=== PATIENT | female | born 1945 | race Caucasian/White ===

== ENCOUNTER → 2016-06-16 | Outpatient (CLI) | payer MEDICARE, MEDICAID ==
[~2016-06-16] MED LIST: ACTOS30 MG PO; ALLEGRA 180MG180 MG PO; AMARYL PO; AMBIEN 10MG10 MG PO; AQUAPHOR1 OIN; ASPIRIN 81M81 MG/TA2 PO; ASPIRIN E.C. 8181 MG PO; ATIVAN 0.50.5 MG/TAB PO; BACTROBAN2% TP; BENADRYL25 M1 PO; BENADRYL25 M2; BIOTENE DRY M1000 ML; CEFTIN500 MG PO; CEPHALEXIN250 M1 PO; CIPRO 500MG TA500 MG PO; CIPRO500 MG PO; COLACE 100100 MG/CAP PO; DAZIDOX10 MG PO; DETROL LA4 PO; DIFLUCAN 100MG100 MG PO; DIFLUCAN100 MG PO; DIFLUCAN150 MG PO; DILANTIN 100MG100 MG PO; DILANTIN 50MG C50 MG PO; DITROPAN XL15 MG PO; EFFEXOR 75M75 MG/TAB PO; EFFEXOR XR75 MG/CAP PO; EFFEXOR-XR150 MG PO; FLONASE NASAL S16 GM; FLONASE NASAL S16 GM NS; GABAPENTIN100 M1 PO; GLUCOPHAGE500 MG/TAB PO; GLUCOPHAGE850 MG/TAB PO; GLUCOTROL 5M5 MG/TAB PO; GLUCOTROL5 MG PO; IMDUR 30MG30 MG/TAB PO; IMIPRAMINE PO; IMIPRAMINE25 MG PO; KEPPRA 500MG500 MG PO; LEVAQUIN 5500 MG/TA1 PO; LIORESAL 1010 MG/TAB PO; LIPITOR 40MG TA40 MG PO; LOPRESSOR 225 MG/TAB PO; LORTAB; LORTAB 5/500 501 TAB PO; LUNESTA 1MG TAB1 MG PO; LUNESTA3 MG PO; MACROBID 1100 MG/CAP PO; METFORMIN500 MG PO; METFORMIN850 MG PO; METHENAMINE; MICONAZOLE 72% TP; NEURONTIN100 MG/CAP PO; NIASPAN 500MG500 MG PO; NIASPAN1000 MG PO; NITROSTAT0.4 MG SL; NORCO 325 MG-51 TAB; NORCO 325 MG-51 TAB PO; NYSTATIN POWDER30 GM PO; OMEPRAZOLE20 MG PO; OMNICEF 300MG300 MG PO; OXYBUTYNIN CHLO15 MG PO; PERCOCET 325 MG1 TA2 PO; PHENERGAN 25 TA25 MG PO; PHENYTOIN100 MG PO; PRILOSEC 20MG20 MG PO; PRILOTC PO; PRINIVIL10 MG PO; PROLOPRIM100 MG PO; REGLAN 5MG T5 MG/TAB PO; REGLAN 5MG5 MG PO; ROCEPHIN2 GM IJ; SENNA LAX8.6 MG PO; SEROQUEL 2525 MG/TAB PO; SEROQUEL50 MG PO; SIMVASTATIN40 MG PO; TOFRANIL 25MG T25 MG PO; TRAMADOL50 MG PO; TYLENOL 8 HR PO; UNABLE; VESICARE 5MG5 MG PO; VESICARE PO; ZESTRIL 10MG10 MG PO; ZOCOR40 MG PO; ZOFRAN ODT4 MG PO; ZYRTEC 10MG10 MG PO; ZYRTEC ALLERGY10 MG PO; ZYRTEC5 MG PO; [UNRECOGNIZED DRUG - OTHER] RC; glimepiride; isosorbide
[2016-06-16 10:50] LABS: BASO % 0.4 % (0.0-2.0); EOS # 0.5 (0.0-0.7); EOS % 5.2 % (0-4.0); GRAN # 5.6 (1.4-6.5); GRAN % 57.7 % (42.2-75.2); HEMATOCRIT 36.6 % (37.0-47.0); HEMOGLOBIN 12.5 g/dl (12.5-16.0); LYMPH # 2.9 (1.2-3.4); LYMPH % 29.5 % (20.0-51.0); MEAN CELL VOLUME 92 fl (80.0-100.0); MEAN CORPUSCULAR HEMOGLOBIN 32 pg (27.0-31.0); MEAN CORPUSCULAR HGB CONC 34 g/dl (33.0-37.0); MEAN PLATELET VOLUME 10.1 fl (7.4-10.4); MONO # 0.7 (0.1-0.6); PLATELET COUNT 268 K/mm3 (130-400); RED BLOOD COUNT 3.96 M/mm3 (4.10-5.30); REDCELL DISTRIBUTION WIDTH-CV 12.6 % (11.5-14.5); WHITE BLOOD COUNT 9.8 K/mm3 (4.8-10.8)
[2016-06-16 10:56] LABS: CALCIUM 9.2 mg/dL (8.4-10.2); CREATININE, serum 0.5 mg/dL (0.52-1.25); POTASSIUM 4.6 mmol/L (3.4-5.0)
== END ==
LOC: ZCOL.LAB 09:19
PROVIDERS: Internal Medicine
DX: I25.9 Chronic ischemic heart disease, unspecified (principal); E11.9 Type 2 diabetes mellitus without complications

== ENCOUNTER → 2016-06-22 | Outpatient (CLI) | payer MEDICARE, MEDICAID | LOC: ZCOL.LAB 09:40 | DX: E11.9 Type 2 diabetes mellitus without complications (principal) ==

== ENCOUNTER → 2016-07-18 | Outpatient (CLI) | payer MEDICARE, MEDICAID | LOC: ZCOL.LAB 17:07 | DX: T42.0X1A Poisoning by hydantoin derivatives, accidental (unintentional), initial encounter (principal) ==

== ENCOUNTER → 2016-07-29 | Outpatient (CLI) | payer MEDICARE, MEDICAID ==
[2016-07-29 09:41] LABS: BASO % 0.3 % (0.0-2.0); EOS # 0.5 (0.0-0.7); EOS % 4.9 % (0-4.0); GRAN # 6.3 (1.4-6.5); GRAN % 61.6 % (42.2-75.2); HEMATOCRIT 38.8 % (37.0-47.0); HEMOGLOBIN 12.9 g/dl (12.5-16.0); LYMPH # 2.6 (1.2-3.4); MEAN CELL VOLUME 92 fl (80.0-100.0); MEAN CORPUSCULAR HEMOGLOBIN 31 pg (27.0-31.0); MEAN CORPUSCULAR HGB CONC 33 g/dl (33.0-37.0); MEAN PLATELET VOLUME 11.1 fl (7.4-10.4); MONO # 0.8 (0.1-0.6); MONO % 7.8 % (1.7-9.3); PLATELET COUNT 245 K/mm3 (130-400); RED BLOOD COUNT 4.21 M/mm3 (4.10-5.30); REDCELL DISTRIBUTION WIDTH-CV 13.2 % (11.5-14.5); WHITE BLOOD COUNT 10.3 K/mm3 (4.8-10.8)
== END ==
LOC: ZCOL.LAB 09:34
PROVIDERS: Internal Medicine
DX: I10 Essential (primary) hypertension (principal)

== ENCOUNTER → 2016-08-17 | Outpatient (CLI) | payer MEDICARE, MEDICAID ==
[2016-08-17 08:16] LABS: ALBUMIN 3.3 gm/dL (3.5-5.0); BILIRUBIN,DIRECT 0.3 mg/dL (0.0-0.4); BILIRUBIN,TOTAL 0.3 mg/dL (0.0-1.0); TOTAL PROTEIN 6.5 gm/dL (6.4-8.2)
== END ==
LOC: ZCOL.LAB 06:57
PROVIDERS: Internal Medicine
DX: I25.89 Other forms of chronic ischemic heart disease (principal)

== ENCOUNTER → 2016-08-25 | Outpatient (CLI) | payer MEDICARE, MEDICAID ==
[2016-08-25 01:10] LABS: BASO # 0.1 (0.0-0.2); BASO % 0.5 % (0.0-2.0); EOS # 0.5 (0.0-0.7); EOS % 4.6 % (0-4.0); GRAN # 5.6 (1.4-6.5); GRAN % 50.3 % (42.2-75.2); HEMOGLOBIN 12.1 g/dl (12.5-16.0); LYMPH % 35.9 % (20.0-51.0); MEAN CELL VOLUME 94 fl (80.0-100.0); MEAN CORPUSCULAR HEMOGLOBIN 31 pg (27.0-31.0); MEAN CORPUSCULAR HGB CONC 33 g/dl (33.0-37.0); MEAN PLATELET VOLUME 11.3 fl (7.4-10.4); MONO % 8.5 % (1.7-9.3); PLATELET COUNT 209 K/mm3 (130-400); RED BLOOD COUNT 3.91 M/mm3 (4.10-5.30); REDCELL DISTRIBUTION WIDTH-CV 13.4 % (11.5-14.5); WHITE BLOOD COUNT 11.2 K/mm3 (4.8-10.8)
[2016-08-25 01:11] LABS: HEMATOCRIT 36.6 % (37.0-47.0)
== END ==
LOC: ZCOL.LAB 01:01
PROVIDERS: Internal Medicine
DX: I25.89 Other forms of chronic ischemic heart disease (principal)

== ENCOUNTER → 2016-09-19 | Outpatient (CLI) | payer MEDICARE, MEDICAID | LOC: ZCOL.LAB 15:57 | PROVIDERS: Internal Medicine | DX: E78.5 Hyperlipidemia, unspecified (principal); E11.9 Type 2 diabetes mellitus without complications; Z02.89 Encounter for other administrative examinations ==

== ENCOUNTER → 2016-11-06 | Outpatient (CLI) | payer MEDICARE, MEDICAID ==
[2016-11-06 11:36] LABS: ALBUMIN 3.6 gm/dL (3.5-5.0); BILIRUBIN,TOTAL 0.4 mg/dL (0.0-1.0); CALCIUM 8.7 mg/dL (8.4-10.2); CREATININE, serum 0.67 mg/dL (0.52-1.25); POTASSIUM 4.8 mmol/L (3.4-5.0); TOTAL PROTEIN 6.5 gm/dL (6.4-8.2)
== END ==
LOC: ZCOL.LAB 09:32
PROVIDERS: Internal Medicine
DX: F25.9 Schizoaffective disorder, unspecified (principal)

== ENCOUNTER → 2017-01-15 | Outpatient (CLI) | payer MEDICARE, MEDICAID | LOC: ZCOL.LAB 12:53 | DX: R56.9 Unspecified convulsions (principal) ==

== ENCOUNTER → 2017-06-06 | Outpatient (CLI) | payer MEDICARE, MEDICAID ==
[2017-06-06 03:05] LABS: CALCIUM 8.8 mg/dL (8.4-10.2); CREATININE, serum 0.71 mg/dL (0.52-1.25); POTASSIUM 4.2 mmol/L (3.4-5.0)
== END ==
LOC: ZCOL.LAB 02:41
PROVIDERS: Internal Medicine
DX: E11.9 Type 2 diabetes mellitus without complications (principal); R79.89 Other specified abnormal findings of blood chemistry

== ENCOUNTER → 2017-06-11 | Outpatient (CLI) | payer MEDICARE, MEDICAID ==
[2017-06-11 17:09] LABS: CALCIUM 8.7 mg/dL (8.4-10.2); CREATININE, serum 0.77 mg/dL (0.52-1.25); POTASSIUM 4.7 mmol/L (3.4-5.0)
== END ==
LOC: ZCOL.LAB 16:53
PROVIDERS: Internal Medicine
DX: E11.9 Type 2 diabetes mellitus without complications (principal)

== ENCOUNTER → 2017-06-15 | Outpatient (CLI) | payer MEDICARE, MEDICAID ==
[2017-06-15 05:10] LABS: CALCIUM 8.9 mg/dL (8.4-10.2); CREATININE, serum 0.68 mg/dL (0.52-1.25)
== END ==
LOC: ZCOL.LAB 04:53
PROVIDERS: Internal Medicine
DX: R79.89 Other specified abnormal findings of blood chemistry (principal)

== ENCOUNTER → 2017-06-19 | Outpatient (CLI) | payer MEDICARE, MEDICAID | LOC: COL.RAD 10:13 | DX: K80.20 Calculus of gallbladder without cholecystitis without obstruction (principal); N20.0 Calculus of kidney; N26.1 Atrophy of kidney (terminal); I70.0 Atherosclerosis of aorta; R63.4 Abnormal weight loss; J41.0 Simple chronic bronchitis | CPT/HCPCS: J7050; Q9967 ==

== ENCOUNTER → 2017-06-20 | Outpatient (CLI) | payer MEDICARE, MEDICAID ==
[2017-06-20 11:14] LABS: CALCIUM 8.8 mg/dL (8.4-10.2); CREATININE, serum 0.66 mg/dL (0.52-1.25); POTASSIUM 5.5 mmol/L (3.4-5.0)
== END ==
LOC: ZCOL.LAB 10:57
PROVIDERS: Internal Medicine
DX: I10 Essential (primary) hypertension (principal)

== ENCOUNTER → 2017-07-18 | Outpatient (CLI) | payer MEDICARE, MEDICAID | LOC: ZCOL.LAB 09:13 | DX: R56.9 Unspecified convulsions (principal) ==

== ENCOUNTER → 2018-01-15 | Outpatient (REF) | LOC: ZCOL.LAB 10:42 | DX: I69.928 Other speech and language deficits following unspecified cerebrovascular disease (principal) ==

== ENCOUNTER → 2018-01-30 | Outpatient (REF) ==
[2018-01-30 14:14] LABS: BASO % 0.4 % (0.0-2.0); EOS # 0.3 (0.0-0.7); EOS % 3.9 % (0-4.0); GRAN # 5.5 (1.4-6.5); HEMATOCRIT 42.5 % (37.0-47.0); HEMOGLOBIN 14.2 g/dl (12.5-16.0); MEAN CELL VOLUME 93 fl (80.0-100.0); MEAN CORPUSCULAR HEMOGLOBIN 31 pg (27.0-31.0); MEAN CORPUSCULAR HGB CONC 33 g/dl (33.0-37.0); MONO # 0.6 (0.1-0.6); MONO % 7.3 % (1.7-9.3); PLATELET COUNT 194 K/mm3 (130-400); RED BLOOD COUNT 4.56 M/mm3 (4.10-5.30); REDCELL DISTRIBUTION WIDTH-CV 12.8 % (11.5-14.5)
[2018-01-30 14:31] LABS: ALBUMIN 3.7 gm/dL (3.5-5.0); BILIRUBIN,TOTAL 0.2 mg/dL (0.0-1.0); CALCIUM 8.6 mg/dL (8.4-10.2); CREATININE, serum 0.66 mg/dL (0.52-1.25); PHENYTOIN (DILANTIN) 3.9 ug/mL (10.0-20.0); POTASSIUM 4.9 mmol/L (3.4-5.0); TOTAL PROTEIN 7.4 gm/dL (6.4-8.2)
[2018-01-30 15:23] LABS: THYROID STIMULATING HORMONE 1.74 uIU/mL (0.465-4.680)
== END ==
LOC: ZCOL.LAB 13:52
PROVIDERS: Internal Medicine
DX: E11.9 Type 2 diabetes mellitus without complications (principal); E03.9 Hypothyroidism, unspecified; R56.9 Unspecified convulsions

== ENCOUNTER → 2018-02-19 | Outpatient (CLI) | payer MEDICARE, MEDICAID | LOC: ZCOL.LAB 18:10 | DX: R56.9 Unspecified convulsions (principal) ==

== ENCOUNTER → 2018-06-25 | Outpatient (CLI) | payer MEDICARE, MEDICAID ==
[2018-06-25 15:16] LABS: BILIRUBIN,TOTAL 0.2 mg/dL (0.0-1.0); CALCIUM 9.2 mg/dL (8.4-10.2); CREATININE, serum 0.63 mg/dL (0.52-1.25); POTASSIUM 4.8 mmol/L (3.4-5.0); TOTAL PROTEIN 7.3 gm/dL (6.4-8.2)
[2018-06-25 15:23] LABS: BASO % 0.3 % (0.0-2.0); EOS # 0.2 (0.0-0.7); EOS % 2.3 % (0-4.0); GRAN # 6.7 (1.4-6.5); GRAN % 67.3 % (42.2-75.2); LYMPH # 2.3 (1.2-3.4); LYMPH % 23.3 % (20.0-51.0); MEAN CELL VOLUME 96 fl (80.0-100.0); MEAN CORPUSCULAR HEMOGLOBIN 31 pg (27.0-31.0); MEAN CORPUSCULAR HGB CONC 33 g/dl (33.0-37.0); MEAN PLATELET VOLUME 12.1 fl (7.4-10.4); MONO # 0.7 (0.1-0.6); MONO % 6.5 % (1.7-9.3); PLATELET COUNT 198 K/mm3 (130-400); RED BLOOD COUNT 4.77 M/mm3 (4.10-5.30); REDCELL DISTRIBUTION WIDTH-CV 12.8 % (11.5-14.5)
[2018-06-25 15:43] LABS: THYROID STIMULATING HORMONE 2.49 uIU/mL (0.465-4.680)
[2018-06-25 16:29] LABS: PHENYTOIN (DILANTIN) 15.1 ug/mL (10.0-20.0)
== END ==
LOC: ZCOL.LAB 12:01
PROVIDERS: Internal Medicine
DX: E11.9 Type 2 diabetes mellitus without complications (principal); I69.928 Other speech and language deficits following unspecified cerebrovascular disease; E03.9 Hypothyroidism, unspecified

== ENCOUNTER → 2018-07-22 | Outpatient (CLI) | payer MEDICARE, MEDICAID | LOC: COL.LAB 10:50 | DX: R56.9 Unspecified convulsions (principal) ==

== ENCOUNTER → 2018-10-23 | Outpatient (CLI) | payer MEDICARE, MEDICAID | LOC: MC.RAD 12:45 | DX: N63.20 Unspecified lump in the left breast, unspecified quadrant (principal) ==

== ENCOUNTER → 2018-12-31 | Outpatient (CLI) | payer MEDICARE, MEDICAID | LOC: COL.PUL 11:40 | DX: J44.9 Chronic obstructive pulmonary disease, unspecified (principal); F17.210 Nicotine dependence, cigarettes, uncomplicated ==

== ENCOUNTER → 2019-02-12 | Outpatient (CLI) | payer MEDICARE, MEDICAID | LOC: ZCOL.LAB 14:48 | DX: R56.9 Unspecified convulsions (principal) ==

== ENCOUNTER 2019-02-28 05:36 | Day surgery (SDC) | payer MEDICARE, MEDICAID ==
[~2019-02-28] VITALS: Ht 170.2 cm; Wt 62.7 kg
[2019-02-28 06:51] VITALS: BP 129/45; PULSE 55; TEMP 97.7
[2019-02-28] MEDS ORDERED: MIRALAX PA17 GM/Dose PO (07:00)
[2019-02-28] MEDS ORDERED: PROBIOTIC FORMU1 CAP PO (07:01)
[2019-02-28] MEDS ORDERED: ARIMIDEX1 MG PO (07:02)
[2019-02-28] MEDS ORDERED: ULTRAM 50MG TAB50 MG PO (07:03)
[2019-02-28] MEDS ORDERED: TOPROL XL 25MG25 MG PO (07:04)
[2019-02-28] MEDS ORDERED: NORVASC 5MG5 MG/TAB PO (07:05)
[2019-02-28] MEDS ORDERED: DILANTIN 100MG100 MG PO (07:06)
[2019-02-28] MEDS ORDERED: LIPITOR 40MG TA40 MG PO (07:07)
[2019-02-28] MEDS ORDERED: MELATONIN5 M1 PO (07:08)
[2019-02-28] MEDS ORDERED: KEPPRA 500MG500 MG PO (07:10)
[2019-02-28] MEDS ORDERED: COLACE 100100 MG/CAP PO (07:11)
[2019-02-28] MEDS ORDERED: SENNA-LAX8.6 MG PO (07:12)
[2019-02-28] MEDS ORDERED: NYSTATIN CREAM15 GM TP (07:14)
[2019-02-28] MEDS ORDERED: TUMS500 MG PO (07:16)
[2019-02-28] MEDS ORDERED: ZANTAC 7575 MG PO (07:17)
[2019-02-28] MEDS ORDERED: TYLENOL 325MG325 MG PO (07:17)
--- NOTE | 2019-02-28 07:35 | NUR ---
TO RM AT 0600- CALL LIGHT IN REACH DAUGHTER ON HER WAY
--- NOTE | 2019-02-28 07:36 | NUR ---
ASAS PIPE BOWLS PAINT TRIMMER INTO TALK WITH PATIENT PATIENT QUIETLY WATCHING TV
[2019-02-28 08:57] VITALS: BP 122/50; PULSE 52; TEMP 98.4
--- NOTE | 2019-02-28 08:57 | NUR ---
TO RM 8 PER CART FROM OR. DROWSY, BUT RESPONDS TO VERBAL STIMULI. [place] SET DRESSING CLEAN DRY INTACT.
[2019-02-28 09:00] VITALS: BP 110/54; PULSE 51
--- NOTE | 2019-02-28 09:00 | NUR ---
MORE AWAKE AND TALKING TO DAUGHTER RECEIVED WATER AND TAKING SIPS WITH DIFFICULTY.
[2019-02-28 09:15] VITALS: BP 132/59; PULSE 56
--- NOTE | 2019-02-28 09:15 | NUR ---
RECEIVED APPLE SAUCE AND MELBA. PUDDING.
--- NOTE | 2019-02-28 09:17 | NUR ---
ACCUCHECK 118-
[2019-02-28 09:30] VITALS: BP 135/69; PULSE 53
--- NOTE | 2019-02-28 09:30 | NUR ---
ATE 1/2 PUDDING AND 1/2 CRACKERS ATE 100% APPLE SAUCE RECEIVED [employer]
== END 2019-02-28 10:44 ==
LOC: SDCO 05:36
DX: C50.412 Malignant neoplasm of upper-outer quadrant of left female breast (principal); I69.854 Hemiplegia and hemiparesis following other cerebrovascular disease affecting left non-dominant side; I25.9 Chronic ischemic heart disease, unspecified; I25.2 Old myocardial infarction; I25.10 Atherosclerotic heart disease of native coronary artery without angina pectoris; I11.9 Hypertensive heart disease without heart failure; I10 Essential (primary) hypertension; E11.9 Type 2 diabetes mellitus without complications; Z79.84 Long term (current) use of oral hypoglycemic drugs; J44.9 Chronic obstructive pulmonary disease, unspecified; F32.9 Major depressive disorder, single episode, unspecified; K21.9 Gastro-esophageal reflux disease without esophagitis; E03.9 Hypothyroidism, unspecified; M19.90 Unspecified osteoarthritis, unspecified site; Z98.51 Tubal ligation status; F17.210 Nicotine dependence, cigarettes, uncomplicated; Z79.899 Other long term (current) drug therapy; Z79.82 Long term (current) use of aspirin; E11.43 Type 2 diabetes mellitus with diabetic autonomic (poly)neuropathy; K31.84 Gastroparesis; F41.9 Anxiety disorder, unspecified; G89.29 Other chronic pain; N31.9 Neuromuscular dysfunction of bladder, unspecified; K59.09 Other constipation; D64.9 Anemia, unspecified; Z87.440 Personal history of urinary (tract) infections; R56.9 Unspecified convulsions; Z80.9 Family history of malignant neoplasm, unspecified; Z99.3 Dependence on wheelchair; Z88.1 Allergy status to other antibiotic agents; Z88.0 Allergy status to penicillin
CPT/HCPCS: J0690; J2704; J3010; J7030

== ENCOUNTER → 2019-07-17 | Outpatient (CLI) | payer MEDICARE, MEDICAID ==
[~2019-07-17] MED LIST changes: +ARIMIDEX1 MG PO; +MELATONIN5 M1 PO; +MIRALAX PA17 GM/Dose PO; +NORVASC 5MG5 MG/TAB PO; +NYSTATIN CREAM15 GM TP; +PROBIOTIC FORMU1 CAP PO; +SENNA-LAX8.6 MG PO; +TOPROL XL 25MG25 MG PO; +TUMS500 MG PO; +TYLENOL 325MG325 MG PO; +ULTRAM 50MG TAB50 MG PO; +ZANTAC 7575 MG PO
[2019-07-17 14:25] LABS: BASO % 0.4 % (0.0-2.0); EOS # 0.3 (0.0-0.7); EOS % 2.9 % (0-4.0); GRAN # 5.9 (1.4-6.5); GRAN % 56.9 % (42.2-75.2); HEMATOCRIT 46.6 % (37.0-47.0); HEMOGLOBIN 15.3 g/dl (12.5-16.0); LYMPH # 3.3 (1.2-3.4); LYMPH % 31.7 % (20.0-51.0); MEAN CELL VOLUME 95 fl (80.0-100.0); MEAN CORPUSCULAR HEMOGLOBIN 31 pg (27.0-31.0); MEAN CORPUSCULAR HGB CONC 33 g/dl (33.0-37.0); MEAN PLATELET VOLUME 12.1 fl (7.4-10.4); MONO # 0.8 (0.1-0.6); MONO % 7.7 % (1.7-9.3); PLATELET COUNT 201 K/mm3 (130-400); REDCELL DISTRIBUTION WIDTH-CV 13.2 % (11.5-14.5)
[2019-07-17 15:02] LABS: ALBUMIN 4.2 gm/dL (3.5-5.0); BILIRUBIN,TOTAL 0.3 mg/dL (0.0-1.0); CALCIUM 9.6 mg/dL (8.4-10.2); CREATININE, serum 0.49 (0.52-1.25); PHENYTOIN (DILANTIN) 20.7 ug/mL (10.0-20.0); POTASSIUM 4.5 mmol/L (3.4-5.0); TOTAL PROTEIN 7.9 gm/dL (6.4-8.2)
[2019-07-17 15:13] LABS: CHOLESTEROL RISK RATIO 3.1
== END ==
LOC: ZCOL.LAB 12:44
PROVIDERS: Internal Medicine
DX: I25.10 Atherosclerotic heart disease of native coronary artery without angina pectoris (principal); E11.9 Type 2 diabetes mellitus without complications; R56.9 Unspecified convulsions

== ENCOUNTER → 2020-05-19 | Outpatient (CLI) | payer MEDICARE, MEDICAID ==
[2020-05-19 14:50] LABS: COLLECTION METHOD CATHETER
[2020-05-19 14:59] LABS: BASO % 0.3 % (0.0-2.0); EOS # 0.3 (0.0-0.7); EOS % 3.2 % (0-4.0); GRAN % 63.5 % (42.2-75.2); HEMATOCRIT 43.7 % (37.0-47.0); HEMOGLOBIN 14.2 g/dl (12.5-16.0); LYMPH # 2.5 (1.2-3.4); LYMPH % 26.6 % (20.0-51.0); MEAN CELL VOLUME 95 fl (80.0-100.0); MEAN CORPUSCULAR HEMOGLOBIN 31 pg (27.0-31.0); MEAN CORPUSCULAR HGB CONC 33 g/dl (33.0-37.0); MEAN PLATELET VOLUME 12.2 fl (7.4-10.4); MONO # 0.6 (0.1-0.6); MONO % 6.2 % (1.7-9.3); PLATELET COUNT 232 K/mm3 (130-400); RED BLOOD COUNT 4.59 M/mm3 (4.10-5.30)
[2020-05-19 15:04] LABS: ALBUMIN 3.5 gm/dL (3.5-5.0); AMORPHOUS CRYSTAL Present /uL; BILIRUBIN,TOTAL 0.3 mg/dL (0.0-1.0); CREATININE, serum 0.65 (0.52-1.25); MUCOUS Present /lpf; PH 7 (5-8); POTASSIUM 4.6 mmol/L (3.4-5.0); TOTAL PROTEIN 6.9 gm/dL (6.4-8.2); URINE APPEARANCE Cloudy; URINE BACTERIA Moderate /hpf; URINE BILIRUBIN Negative (NEGATIVE); URINE BLOOD 1+ (NEGATIVE); URINE CALCIUM OXALATE CRYSTAL Present /hpf; URINE COLOR Yellow; URINE GLUCOSE Negative (NEGATIVE); URINE KETONE Negative (NEGATIVE); URINE LEUKOCYTE ESTERASE 1+ (NEGATIVE); URINE NITRATE Positive (NEGATIVE); URINE PROTEIN(semi-quant) 1+ (NEGATIVE); URINE UROBILINOGEN Negative (NEGATIVE); URINE WBC 20-50 /hpf
[2020-05-19 15:34] LABS: THYROID STIMULATING HORMONE 1.91 uIU/mL (0.465-4.680)
[2020-05-19 21:38] LABS: HEPATITIS C VIRUS ANTIBODY Negative (Negative)
== END ==
LOC: ZCOL.LAB 14:17
PROVIDERS: Internal Medicine
DX: C50.512 Malignant neoplasm of lower-outer quadrant of left female breast (principal); E11.9 Type 2 diabetes mellitus without complications; N39.0 Urinary tract infection, site not specified; E78.5 Hyperlipidemia, unspecified

== ENCOUNTER → 2020-05-26 | Outpatient (CLI) | payer MEDICARE, MEDICAID | LOC: ZCOL.LAB 12:21 | DX: E11.9 Type 2 diabetes mellitus without complications (principal) ==

== ENCOUNTER → 2020-08-05 | Outpatient (CLI) | payer MEDICARE, MEDICAID ==
[~2020-08-05] MED LIST changes: +CLEOCIN HCL300 MG PO; +NORVASC 10MG10 MG PO
== END ==
LOC: ZCOL.LAB 10:38
DX: Z01.89 Encounter for other specified special examinations (principal)

== ENCOUNTER → 2020-08-10 | Outpatient (CLI) | payer MEDICARE, MEDICAID ==
[2020-08-10 13:24] LABS: CALCIUM 9.2 mg/dL (8.4-10.2); CREATININE, serum 0.61 (0.52-1.25); POTASSIUM 4.5 mmol/L (3.4-5.0)
== END ==
LOC: ZCOL.LAB 12:25
PROVIDERS: Internal Medicine
DX: I10 Essential (primary) hypertension (principal)

== ENCOUNTER → 2020-10-26 | Outpatient (CLI) | payer MEDICARE, MEDICAID | LOC: ZCOL.LAB 12:23 | DX: E11.9 Type 2 diabetes mellitus without complications (principal); N31.9 Neuromuscular dysfunction of bladder, unspecified ==

== ENCOUNTER → 2020-11-05 | Outpatient (CLI) | payer MEDICARE, MEDICAID ==
[2020-11-05 23:55] LABS: URINE MICROALBUMIN 5.7 mg/dL (0.0-1.7)
== END ==
LOC: ZCOL.LAB 14:25
PROVIDERS: Internal Medicine
DX: E11.42 Type 2 diabetes mellitus with diabetic polyneuropathy (principal)

== ENCOUNTER 2020-11-14 12:06 | Inpatient (IN) | payer MEDICARE, MEDICAID ==
[~2020-11-14] VITALS: Ht 170.2 cm; Wt 54.1 kg
[2020-11-14] VITALS (193 sets, daily range): BP systolic 168; BP diastolic 75; PULSE 62; TEMP 98.5; O2SAT 60–100
[~2020-11-14 12:06] MED LIST changes: -CLEOCIN HCL300 MG PO; -NORVASC 10MG10 MG PO
[2020-11-14 13:28] LABS: BASO % 0.3 % (0.0-2.0); EOS # 0.2 (0.0-0.7); GRAN # 7.3 (1.4-6.5); GRAN % 64.2 % (42.2-75.2); HEMATOCRIT 39.8 % (37.0-47.0); HEMOGLOBIN 12.8 g/dl (12.5-16.0); LYMPH # 3.2 (1.2-3.4); LYMPH % 27.9 % (20.0-51.0); MEAN CELL VOLUME 96 fl (80.0-100.0); MEAN CORPUSCULAR HEMOGLOBIN 31 pg (27.0-31.0); MEAN CORPUSCULAR HGB CONC 32 g/dl (33.0-37.0); MEAN PLATELET VOLUME 11.2 fl (7.4-10.4); MONO # 0.6 (0.1-0.6); MONO % 5.3 % (1.7-9.3); PLATELET COUNT 276 K/mm3 (130-400); RED BLOOD COUNT 4.14 M/mm3 (4.10-5.30); REDCELL DISTRIBUTION WIDTH-CV 13.3 % (11.5-14.5)
[2020-11-14 13:32] LABS: ALBUMIN 3.9 gm/dL (3.5-5.0); BILIRUBIN,TOTAL 0.3 mg/dL (0.0-1.0); CREATININE, serum 0.54 (0.52-1.25); POTASSIUM 5.2 mmol/L (3.4-5.0); TOTAL PROTEIN 7.8 gm/dL (6.4-8.2)
[2020-11-14 13:44] LABS: TROPONIN-I 0.017 ng/mL (0.000-0.035)
[2020-11-14] MEDS ORDERED: PRINIVIL10 MG PO (16:50)
[2020-11-14] MEDS ORDERED: LOPRESSOR 225 MG/TAB PO (16:50)
[2020-11-14] MEDS ORDERED: NORVASC 10MG10 MG PO (16:50)
--- NOTE | 2020-11-14 20:00 | NUR ---
Assessment complete. Pt is AXO X3, denies having any pain at this time. Pt is resting quietly in the bed watching TV at this time and she denies further needs. Call light within reach.
[2020-11-15] VITALS (521 sets, daily range): BP systolic 95–172; BP diastolic 60–87; PULSE 60–92; TEMP 97.7–98.6; O2SAT 42–100
[2020-11-15 05:29] LABS: HEMATOCRIT 39.4 % (37.0-47.0); HEMOGLOBIN 12.6 g/dl (12.5-16.0); MEAN CELL VOLUME 95 fl (80.0-100.0); MEAN CORPUSCULAR HEMOGLOBIN 31 pg (27.0-31.0); MEAN CORPUSCULAR HGB CONC 32 g/dl (33.0-37.0); MEAN PLATELET VOLUME 10.6 fl (7.4-10.4); PLATELET COUNT 221 K/mm3 (130-400); RED BLOOD COUNT 4.13 M/mm3 (4.10-5.30); REDCELL DISTRIBUTION WIDTH-CV 13.2 % (11.5-14.5)
[2020-11-15 05:45] LABS: CALCIUM 8.7 mg/dL (8.4-10.2); CREATININE, serum 0.58 (0.52-1.25); POTASSIUM 4.9 mmol/L (3.4-5.0)
--- NOTE | 2020-11-15 07:21 | NUR ---
Bedside shift report given to RUPAL Contreras.
--- NOTE | 2020-11-15 08:15 | NUR ---
Awake and resting in bed; denies any pain or shortness of breath. VS stable. reports being anxious about the pacemaker insertion. Explained to paient in simple terms what the procedure entails and the purpose. Accepting at this time. Incontinent of stool; assisted with evita-care at this time.
--- NOTE | 2020-11-15 09:39 | NUR ---
JENNIFER met with the patient to discuss discharge plan. The patient resides at [facility] for long-term care. She reports that she plans on returning back to [facility] upon discharge. Her PCP is Dr. Etelvina Bazan and her DPOA-HC is in EMR and it designates her daughter, Mariama Tsai (ph#[phone]). JENNIFER contacted Mariama to review d/c plan. Mariama confirms that the plan is for the patient to return back to [facility] upon discharge. JENNIFER contacted and faxed updates to Tobias at [facility]. JENNIFER to continue to follow. *Discharge plan: [facility] LTC/SNF*
--- NOTE | 2020-11-15 09:55 | NUR ---
Initial visit; Patient thanked Operator Control Room for looking in on her and offering God's blessings.
--- NOTE | 2020-11-15 13:00 | NUR ---
left with RUPAL Medina to laboratory inspector for pacemaker implantation.
[2020-11-15 13:37] LABS: COLLECTION METHOD CATHETER
[2020-11-15 13:51] LABS: MUCOUS Present /lpf; PH 8 (5-8); URINE APPEARANCE Cloudy; URINE BACTERIA Moderate /hpf; URINE BILIRUBIN Negative (NEGATIVE); URINE BLOOD Negative (NEGATIVE); URINE COLOR Yellow; URINE GLUCOSE Negative (NEGATIVE); URINE KETONE Negative (NEGATIVE); URINE LEUKOCYTE ESTERASE 3+ (NEGATIVE); URINE NITRATE Positive (NEGATIVE); URINE PROTEIN(semi-quant) Negative (NEGATIVE); URINE UROBILINOGEN Negative (NEGATIVE); URINE WBC 20-50 /hpf
--- NOTE | 2020-11-15 17:55 | NUR ---
Gomez catheter exchanged due to elevated WBC count on urinalysis. Placed a 16F gomez. Tolerated well.
--- NOTE | 2020-11-15 21:00 | NUR ---
Assessment complete. Pt is AXO X3, denies having any pain at this time. Pt is sitting up in the bed watching TV at this time and she denies further needs. Call light within reach.
[2020-11-16] VITALS (378 sets, daily range): BP systolic 108–125; BP diastolic 56–84; PULSE 60–74; TEMP 98.3–98.4; O2SAT 34–100
[2020-11-16 05:48] LABS: COLLECTION METHOD CATHETER
[2020-11-16 06:06] LABS: BASO % 0.3 % (0.0-2.0); EOS # 0.3 (0.0-0.7); EOS % 2.4 % (0-4.0); GRAN # 8.1 (1.4-6.5); GRAN % 65.8 % (42.2-75.2); HEMATOCRIT 38.4 % (37.0-47.0); HEMOGLOBIN 12.5 g/dl (12.5-16.0); LYMPH # 2.9 (1.2-3.4); LYMPH % 23.6 % (20.0-51.0); MEAN CELL VOLUME 95 fl (80.0-100.0); MEAN CORPUSCULAR HEMOGLOBIN 31 pg (27.0-31.0); MEAN CORPUSCULAR HGB CONC 33 g/dl (33.0-37.0); MEAN PLATELET VOLUME 10.4 fl (7.4-10.4); MONO # 0.9 (0.1-0.6); MONO % 7.5 % (1.7-9.3); PLATELET COUNT 212 K/mm3 (130-400); RED BLOOD COUNT 4.03 M/mm3 (4.10-5.30); REDCELL DISTRIBUTION WIDTH-CV 13.2 % (11.5-14.5)
[2020-11-16 06:10] LABS: PH 6 (5-8); SQUAMOUS EPITHELIAL 0-2 /hpf; URINE APPEARANCE Clear; URINE BACTERIA None Seen /hpf; URINE BILIRUBIN Negative (NEGATIVE); URINE BLOOD 1+ (NEGATIVE); URINE COLOR Straw; URINE GLUCOSE Negative (NEGATIVE); URINE KETONE Negative (NEGATIVE); URINE LEUKOCYTE ESTERASE 2+ (NEGATIVE); URINE NITRATE Negative (NEGATIVE); URINE PROTEIN(semi-quant) Negative (NEGATIVE); URINE RBC 0-2 /hpf; URINE UROBILINOGEN Negative (NEGATIVE)
[2020-11-16 06:19] LABS: CALCIUM 8.9 mg/dL (8.4-10.2); CREATININE, serum 0.61 (0.52-1.25); POTASSIUM 4.6 mmol/L (3.4-5.0)
--- NOTE | 2020-11-16 07:33 | NUR ---
Bedside shift report given to RUPAL Contreras.
[2020-11-16] MEDS ORDERED: CLEOCIN HCL300 MG PO (10:23)
--- NOTE | 2020-11-16 10:33 | NUR ---
The patient is to discharge today, 11/16, back to [facility] for long-term care. Transportation was scheduled at 1330, via [employer]. JENNIFER informed the patient, her RN, and the patient's daughter (Mariama) over the phone of the time. They were all agreeable to the time. No additional needs at this time.
--- NOTE | 2020-11-16 14:00 | NUR ---
Discharged from facility with [facility] employee. Patient alert and oriented and stable upon discharge.
== END 2020-11-16 14:00 | DRG 243 ==
LOC: COL.ER 12:06 → ICU 14:28
PROVIDERS: Personal Emergency Response Attendant; Physician Assistant; ADMIT Hospitalist
PROC: 0JH606Z Insertion of Pacemaker, Dual Chamber into Chest Subcutaneous Tissue and Fascia, Open Approach (ICD-10-PCS; principal; 2020-11-15)
PROC: 02H63JZ Insertion of Pacemaker Lead into Right Atrium, Percutaneous Approach (ICD-10-PCS; 2020-11-15)
PROC: 02HK3JZ Insertion of Pacemaker Lead into Right Ventricle, Percutaneous Approach (ICD-10-PCS; 2020-11-15)
DX: I44.2 Atrioventricular block, complete (principal); I69.354 Hemiplegia and hemiparesis following cerebral infarction affecting left non-dominant side; G40.909 Epilepsy, unspecified, not intractable, without status epilepticus; J44.9 Chronic obstructive pulmonary disease, unspecified; I25.10 Atherosclerotic heart disease of native coronary artery without angina pectoris; I10 Essential (primary) hypertension; E78.5 Hyperlipidemia, unspecified; M19.90 Unspecified osteoarthritis, unspecified site; E11.9 Type 2 diabetes mellitus without complications; E87.5 Hyperkalemia; K21.9 Gastro-esophageal reflux disease without esophagitis; F41.9 Anxiety disorder, unspecified; N31.9 Neuromuscular dysfunction of bladder, unspecified; F17.210 Nicotine dependence, cigarettes, uncomplicated; I25.2 Old myocardial infarction; Z95.5 Presence of coronary angioplasty implant and graft; Z79.82 Long term (current) use of aspirin; Z88.0 Allergy status to penicillin; Z88.1 Allergy status to other antibiotic agents; Z88.6 Allergy status to analgesic agent; Z88.8 Allergy status to other drugs, medicaments and biological substances
CPT/HCPCS: 99222-AI; 99232-AI; 99239; A4314; C1769; C1785; C1894; C1898; J2250; J3010; J3370; J7030; J7050

== ENCOUNTER → 2020-12-07 | Outpatient (CLI) | payer MEDICARE, MEDICAID ==
[~2020-12-07] MED LIST changes: +CLEOCIN HCL300 MG PO; +NORVASC 10MG10 MG PO
[2020-12-07 15:21] LABS: BASO # 0.1 (0.0-0.2); BASO % 0.5 % (0.0-2.0); EOS # 0.4 (0.0-0.7); GRAN # 5.6 (1.4-6.5); GRAN % 56.2 % (42.2-75.2); HEMOGLOBIN 12.4 g/dl (12.5-16.0); LYMPH # 3.2 (1.2-3.4); LYMPH % 32.4 % (20.0-51.0); MEAN CELL VOLUME 98 fl (80.0-100.0); MEAN CORPUSCULAR HEMOGLOBIN 31 pg (27.0-31.0); MEAN CORPUSCULAR HGB CONC 32 g/dl (33.0-37.0); MEAN PLATELET VOLUME 11.6 fl (7.4-10.4); MONO # 0.6 (0.1-0.6); MONO % 6.5 % (1.7-9.3); PLATELET COUNT 272 K/mm3 (130-400); RED BLOOD COUNT 3.97 M/mm3 (4.10-5.30); REDCELL DISTRIBUTION WIDTH-CV 13.6 % (11.5-14.5)
[2020-12-07 15:34] LABS: ALBUMIN 3.5 gm/dL (3.5-5.0); BILIRUBIN,TOTAL 0.2 mg/dL (0.0-1.0); CREATININE, serum 0.63 (0.52-1.25); PHENYTOIN (DILANTIN) 11.5 ug/mL (10.0-20.0); POTASSIUM 4.7 mmol/L (3.4-5.0)
== END ==
LOC: ZCOL.LAB 14:59
PROVIDERS: Internal Medicine
DX: I69.954 Hemiplegia and hemiparesis following unspecified cerebrovascular disease affecting left non-dominant side (principal); N31.9 Neuromuscular dysfunction of bladder, unspecified

== ENCOUNTER → 2020-12-11 | Outpatient (CLI) | payer MEDICARE, MEDICAID ==
[2020-12-11 19:53] LABS: COLLECTION METHOD CATHETER
[2020-12-11 20:07] LABS: MUCOUS Present /lpf; PH 5 (5-8); URINE APPEARANCE Cloudy; URINE BACTERIA Moderate /hpf; URINE BILIRUBIN Negative (NEGATIVE); URINE BLOOD 1+ (NEGATIVE); URINE COLOR Amber; URINE GLUCOSE Negative (NEGATIVE); URINE KETONE Negative (NEGATIVE); URINE LEUKOCYTE ESTERASE 3+ (NEGATIVE); URINE NITRATE Positive (NEGATIVE); URINE PROTEIN(semi-quant) Negative (NEGATIVE); URINE UROBILINOGEN Negative (NEGATIVE); URINE WBC >50 /hpf
== END ==
LOC: ZCOL.LAB 19:35
PROVIDERS: Internal Medicine
DX: N39.0 Urinary tract infection, site not specified (principal)

== ENCOUNTER 2021-04-06 07:41 | Day surgery (SDC) | payer MEDICARE, MEDICAID ==
[~2021-04-06] VITALS: Ht 170.2 cm; Wt 76.5 kg
[2021-04-06] VITALS (14 sets, daily range): BP systolic 102–125; BP diastolic 61–74; PULSE 59–70; TEMP 98.2
[2021-04-06 08:50] LABS: HEMATOCRIT 41.9 % (37.0-47.0); HEMOGLOBIN 13.5 g/dl (12.5-16.0); MEAN CELL VOLUME 96 fl (80.0-100.0); MEAN CORPUSCULAR HEMOGLOBIN 31 pg (27.0-31.0); MEAN CORPUSCULAR HGB CONC 32 g/dl (33.0-37.0); MEAN PLATELET VOLUME 11.6 fl (7.4-10.4); PLATELET COUNT 187 K/mm3 (130-400); RED BLOOD COUNT 4.35 M/mm3 (4.10-5.30); REDCELL DISTRIBUTION WIDTH-CV 13.2 % (11.5-14.5)
[2021-04-06 09:00] LABS: INR 1.1 (0.8-3.0); PROTHROMBIN TIME 12.3 SECONDS (9.7-12.8)
[2021-04-06 09:03] LABS: PARTIAL THROMBOPLASTIN TIME 33.9 SECONDS (26.0-37.0)
[2021-04-06 09:05] LABS: CALCIUM 9.2 mg/dL (8.4-10.2); CREATININE, serum 0.74 mg/dL (0.57-1.11); POTASSIUM 4.5 mmol/L (3.5-4.5)
--- NOTE | 2021-04-06 09:30 | NUR ---
SEE MERGE FOR ALL MEDICATION ADMINISTRATION TIMES, INTRA AND POST SEDATION ASSESSMENTS
--- NOTE | 2021-04-06 10:14 | NUR ---
SEE MERGE DOCUMENTATION FOR MEDICATION ADMINISTRATION TIMES AND INTRA/POST PROCEDURE SEDATION ASSESSMENTS.
--- NOTE | 2021-04-06 11:00 | NUR ---
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 Pt is awake and alert, pwd, resp are reg and unlabored. TR band to rt wrist, cms intact distal. Mateus RN at bs to initiated heparin and nitro drips per orders. Dr. Barber will be coming to speak with pt, she is aware of this. telemetry initiated.
--- NOTE | 2021-04-06 11:30 | NUR ---
Dr. Barber at pt's bedside to discuss test results and poc. He also called pt's daughter and NANO Dennis.
== END 2021-04-06 17:30 | disposition short-term general hospital (02) ==
LOC: COL.CAR 07:41
PROVIDERS: Internal Medicine Cardiovascular Disease
DX: I25.5 Ischemic cardiomyopathy (principal); I25.10 Atherosclerotic heart disease of native coronary artery without angina pectoris; I44.1 Atrioventricular block, second degree; I25.2 Old myocardial infarction; D64.9 Anemia, unspecified; K59.00 Constipation, unspecified; J44.9 Chronic obstructive pulmonary disease, unspecified; E11.9 Type 2 diabetes mellitus without complications; K21.9 Gastro-esophageal reflux disease without esophagitis; E78.2 Mixed hyperlipidemia; H04.129 Dry eye syndrome of unspecified lacrimal gland; F32.A Depression, unspecified; Z95.0 Presence of cardiac pacemaker; Z85.3 Personal history of malignant neoplasm of breast; Z86.73 Personal history of transient ischemic attack (TIA), and cerebral infarction without residual deficits; Z90.89 Acquired absence of other organs; Z79.82 Long term (current) use of aspirin; Z79.899 Other long term (current) drug therapy; Z79.84 Long term (current) use of oral hypoglycemic drugs
CPT/HCPCS: C1769; C1887; J1644; J2250; J3010; Q9967